=== PATIENT | female | born 1960 | race Caucasian/White ===

== ENCOUNTER 2016-04-26 20:12 | Emergency (ER) | payer OTHER ==
[~2016-04-26] VITALS: Ht 162.6 cm; Wt 103.4 kg
--- NOTE | 2016-04-26 20:29 | ED CARDIAC/CP/PALPITATIONS ---
History of Present Illness General Chief Complaint: General Adult Stated Complaint: BIBA TACHYCARDIA Source: patient, old records, EMS Exam Limitations: no limitations Vital Signs & Intake/Output Vital Signs & Intake/Output Vital Signs Date Time Temp Pulse Resp B/P Pulse O2 O2 Flow FiO2 Ox Delivery Rate 04/26 2121 97.0 86 16 126/70 99 Room Air 04/27 2051 88 16 119/71 98 Room Air 04/26 2036 130 119/77 04/26 2029 99 Room Air 04/26 2014 96.7 130 16 119/77 98 Room Air Allergies Coded Allergies: NO KNOWN ALLERGIES (01/10/13) Triage Nurses Notes Reviewed? yes HPI: Patient is a 55-year-old female brought in by ambulance from cardiac rehabilitation for evaluation of elevated heart rate. Patient had been running on a treadmill and using the stationary bike, had completed her exercising when she continued to feel a fast heart rate. Patient's pulse was measured to be approximately 150 bpm. Patient reports that she felt a warm sensation at the time. Pain is 0 out of 10. Patient had a cardiac ablation for atrial fibrillation between 3 and [address] Beard. Patient take Xarelto 20mg daily. Patient denies chest pain, dyspnea, near syncope, syncope. (BEHZAD ARMENTA) Past History Medical History Any Pertinent Medical History? see below for history Cardiovascular: AFIB History of MRSA: No History of VRE: No History of CDIFF: No Influenza Vaccine: 11/07/12 Surgical History Surgical History: gastric sleeve, cardiac ablation Psychosocial History Who do you live with Patient/Self What is your primary language Peruvian Family History Hx Contributory? No (BEHZAD ARMENTA) Review of Systems Review of Systems Constitutional: Denies: chills, fever. EENTM: Reports: no symptoms. Denies: visual changes. Respiratory: Denies: cough, short of breath. Cardiovascular: Reports: see HPI. Denies: chest pain, peripheral edema, syncope. GI: Denies: abdominal pain, diarrhea, nausea, vomiting. Genitourinary: Reports: no symptoms. Musculoskeletal: Reports: no symptoms. Skin: Reports: no symptoms. Neurological/Psychological: Reports: no symptoms. Denies: headache, numbness. Hematologic/Endocrine: Reports: no symptoms. Denies: bruising, bleeding. Immunologic/Allergic: Reports: no symptoms. (BEHZAD ARMENTA) Physical Exam Physical Exam General Appearance: well developed/nourished, alert, awake Head: atraumatic, normal appearance Eyes: Bilateral: normal appearance, PERRL, EOMI. Ears, Nose, Throat: normal pharynx, normal ENT inspection, hearing grossly normal Neck: normal inspection, supple, full range of motion Respiratory: normal breath sounds, chest non-tender, no respiratory distress, lungs clear Cardiovascular: irregularly irregular with rapid ventricular rate Peripheral Pulses: 2+ radial (R), 2+ dorsalis pedis (R), 2+ dorsalis pedis (L) Gastrointestinal: soft, non-tender Back: normal inspection, normal range of motion Extremities: normal inspection, normal capillary refill, normal range of motion, no edema Neurologic/Psych: no motor/sensory deficits, awake, alert, oriented x 3 Skin: intact, normal color, warm/dry Lymphatic: no anterior cervical latrice Core Measures ACS in differential dx? Yes ASA ordered for poss ACS? No-ACS ruled out Severe Sepsis Present: No Septic Shock Present: No (BEHZAD ARMENTA) Progress Differential Diagnosis: AMI, atrial fibrillation, hyperthyroid, pulmonary embolism, electrolyte abnormality Plan of Care: Orders Procedure Date/time Status Telemetry/Group Tester 04/26 2024 Active TSH REFLEX 04/26 2024 Complete TROPONIN LEVEL 04/26 2024 Complete MAGNESIUM 04/26 2024 Complete COMPREHENSIVE METABOLIC PANEL 04/26 2024 Complete CBC WITHOUT DIFFERENTIAL 04/26 2024 Complete EKG 04/27 2011 Active Laboratory Tests 04/26/16 2030: Anion Gap 8, Estimated GFR > 60, BUN/Creatinine Ratio 35.7 H, Glucose 85, Calcium 9.5, Magnesium 1.9, Total Bilirubin 0.5, AST 32, ALT 47, Alkaline Phosphatase 96, Troponin I 0.02, Total Protein 7.0, Albumin 4.1, Globulin 2.9, Albumin/Globulin Ratio 1.4, TSH &T3 &Free T4 Intrp 2.690 04/26/162024: CBC w Diff NO MAN DIFF REQ, RBC 4.58, MCV 87.2, MCH 29.2, RDW 14.4, MPV 8.0, Gran % 62.3, Lymphocytes % 29.1, Monocytes % 5.6, Eosinophils % 2.3, Basophils % 0.7, Absolute Granulocytes 3.6, Absolute Lymphocytes 1.7, Absolute Monocytes 0.3 , Absolute Eosinophils 0.1, Absolute Basophils 0, PUBS MCHC 33.5 04/26/2016 8:30:30 PM: IV cardizem ordered. Discussed with Dr. Morales. 04/26/2016 8:40:04 PM: Patient received 20 mg of IV Cardizem with heart rate improvement to the 80s to 90s, continues in atrial fibrillation 04/26/2016 8:56:04 PM: Patient resting comfortably, no current complaints. Heart rate in the 80's to low 90's in afib. Awaiting call back from patient's it applications manager. 04/26/2016 9:09:37 PM: Discussed with Dr. Cifuentes: have patient go back on her Cardizem 120 mg daily and if remains normotensive and rate controlled then can discharge and have follow up outpatient. 04/26/2016 9:34:31 PM: Patient resting comfortably, discussed results of labs. Patient reporting slight change in her vision, a "crystalline appearance" mildly in both eyes. Similar occurrence 1 week after the ablation while patient was on lasix. Patient no longer on lasix. No obvious abnomality on fundoscopic exam. Patient instructed to contact her eye doctor tomorrow for further evaluation. (BEHZAD ARMENTA) Pre-Hospital EKG: sinus tachycardia, no acute st elevation or depression Initial ED EKG: AFIB (with RVR), no ST T wave changes Prior EKG: changed Rhythm Strip: atrial fibrillation (rate up to 140's) (BEHZAD ARMENTA) Departure Departure Disposition: HOME OR SELF CARE Condition: Stable Clinical Impression Primary Impression: Atrial fibrillation with rapid ventricular response Referrals: EMILEE BANKS,GUS BRICE MD,GUS PEARSON MD,BARB Delgado (PCP/Family) Additional Instructions: Follow up with your it applications manager for further evaluation. Resume taking your diltiazem daily. Return to the ER if chest pain, difficulty breathing, lightheadedness, or worsening of symptoms. Call your eye doctor tomorrow to be seen within 1-2 days for further evaluation of the visual changes that you have been experiencing. Departure Forms: Customer Survey General Discharge Information (BEHZAD ARMENTA) PA/GOLD BEATER Co-Sign Statement Statement: ED Attending supervision documentation- [] I saw and evaluated the patient. I have also reviewed all the pertinent lab results and diagnostic results. I agree with the findings and the plan of care as documented in the PA's/GOLD BEATER's documentation. [x] I have reviewed the ED Record and agree with the PA's/GOLD BEATER's documentation. [] Additions or exceptions (if any) to the PAs/GOLD BEATER's note and plan are summarized below: [] (RAYMUNDO BANKS,CHALO Rivera) Critical Care Note Critical Care Note Critical Care Time: non-applicable ([facility],BEHZAD)
[2016-04-26 20:41] LABS: ABSOLUTE BASOPHIL COUNT 0 /CUMM (0.0-0.2); ABSOLUTE EOSINOPHIL COUNT 0.1 /CUMM (0.0-0.7); ABSOLUTE GRANULOCYTE CT 3.6 /CUMM (1.4-6.5); ABSOLUTE LYMPH COUNT 1.7 /CUMM (1.2-3.4); ABSOLUTE MONOCYTE COUNT 0.3 /CUMM (0.10-0.60); BASOPHIL % 0.7 % (0.0-2.0); EOSINOPHIL % 2.3 % (0-5); GRANULOCYTE % 62.3 % (42.2-75.2); HEMATOCRIT 39.9 % (37-47); MEAN CORPUSCULAR HGB 29.2 PG (27.0-31.0); MEAN CORPUSCULAR HGB CONC 33.5 G/DL (33.0-37.0); MEAN CORPUSCULAR VOLUME 87.2 FL (81.0-99.0); PLATELET COUNT 287 /CUMM (130-400); RBC DISTRIBUTION WIDTH 14.4 % (11.5-14.5); RED BLOOD CELL CT 4.58 /CUMM (4.20-5.40); WHITE BLOOD CELL COUNT 5.8 /CUMM (4.8-10.8)
[2016-04-26 21:22] VITALS: BP 126/70
== END 2016-04-26 21:48 ==
LOC: ERH 20:12
PROVIDERS: Physician Assistant
DX: I48.91 Unspecified atrial fibrillation (principal)
CPT/HCPCS: 93005; 93010; 96374